=== PATIENT | female | born 1950 | race Caucasian/White ===

== ENCOUNTER 2018-10-27 06:55 | Day surgery (SDC) | payer MEDICARE, OTHER ==
[~2018-10-27] VITALS: Ht 157.5 cm; Wt 58.3 kg
[2018-10-27] MEDS ORDERED: LOSARTAN (07:45)
[2018-10-27] MEDS ORDERED: PLAVIX (07:45)
[2018-10-27] MEDS ORDERED: QVAR (07:45)
[2018-10-27] MEDS ORDERED: AMITRIPTYLINE (07:45)
[2018-10-27] MEDS ORDERED: NABUMETONE (07:45)
[2018-10-27] MEDS ORDERED: AMLODIPINE (07:45)
[2018-10-27] MEDS ORDERED: METOPROLOL (07:45)
[2018-10-27] MEDS ORDERED: OMEPRAZOLE (07:45)
[2018-10-27] MEDS ORDERED: ATORVASTATIN (07:45)
[2018-10-27] MEDS ORDERED: ADVAIR (07:45)
[2018-10-27 07:50] VITALS: Ht 157.5 cm; Wt 58.3 kg
[2018-10-27 07:58] VITALS: BP 121/69; PULSE 69; RESP 18
--- NOTE | 2018-10-27 07:59 | PREAC ---
Date/Time of Note Date/Time of Note DATE: 10/27/18 TIME: 07:57 Anesthesia Eval and Record Evaluation Time Pre-Procedure Interview DATE: 10/27/18 TIME: 07:57 Age 68 Sex female NPO: 8 hrs Preoperative diagnosis REFLUX, CHANGE IN BOWEL HABITS Planned procedure EGD, COLONOSCOPY WITH BIOPSIES Past Medical History Past Medical History: Includes Cardio: HTN, Dyslipidemia Pulm: Asthma Neuro: CVA GI: GERD Surgery & Anesthesia Issues No known issue Meds Anticoagulation: No Beta Domingo within 24 hr: Yes Reported Medications [Advair] No Conflict Check 10/27/18 [Qvar] No Conflict Check 10/27/18 [Nabumetone] No Conflict Check 10/27/18 [Amitriptyline] No Conflict Check 10/27/18 [Plavix] No Conflict Check 10/27/18 [Atorvastatin] No Conflict Check 10/27/18 [Metoprolol] No Conflict Check 10/27/18 [Amlodipine] No Conflict Check 10/27/18 [Losartan] No Conflict Check 10/27/18 [Omeprazole] No Conflict Check 10/27/18 Meds reviewed: Yes Allergies Coded Allergies: Codeine (Verified Allergy, 03/08/13) Allergies Reviewed: Yes Labs/Studies Labs Reviewed: Reviewed by anesthesiologist test: N/A Pre-procedure Exam Airway: Adequate mouth opening, Adequate thyromental dist Mallampati: Mallampati II Teeth: Normal Lung: Normal Heart: Normal ASA Physical Status ASA physical status: 2 Emergency: None Planned Anesthetic General/MAC: MAC Planned Pain Management Parenteral pain med Pre-operative Attestations Prior to commencing anesthesia and surgery, the patient was re-evaluated, there was verification of: *The patient's identity *The results of appropriate recent lab work and preoperative vital signs *The above evaluation not changing prior to induction *Anesthetic plan, risk benefits, alternative and complications discussed with patient/family; questions answered; patient/family understands, accepts and wishes to proceed. Hunter Arnold M.D. October 27, 2018 07:59
[2018-10-27] MEDS ORDERED: LIDOCAINE 100 MG SYRINGE ONE (08:42)
[2018-10-27] MEDS ORDERED: PROPOFOL 20 ML ONE (08:42)
[2018-10-27 09:46] VITALS: BP 129/69; RESP 20
--- NOTE | 2018-10-27 12:44 | PAC ---
Date/Time of Note Date/Time of Note DATE: 10/27/18 TIME: 12:44 Post-Anesthesia Notes Post-Anesthesia Note Last documented vital signs Vital Signs Date Temp Pulse Resp B/P (MAP) Pulse Ox O2 O2 Flow FiO2 Time Delivery Rate 10/27/18 20 129/69 97 Room Air 09:46 (89) 10/27/18 97.6 69 07:58 Activity: WNL Respiratory function: WNL Cardiovascular function: WNL Mental status: Baseline Pain reasonably controlled: Yes Hydration appropriate: Yes Nausea/Vomiting absent: Yes GEOVANNA MARTINEZ October 27, 2018 12:44
--- NOTE | 2018-10-28 06:56 | CONS ---
DATE OF ADMISSION: 10/27/2018 DATE OF CONSULTATION: PATIENT NAME: GRAY PARDO TYPE OF CONSULTATION: Preoperative gastroenterology. Dear Dr. Lizarraga: I thank you very much for this kind referral. HISTORY OF PRESENT ILLNESS: Ms. Gray Pardo is a 68-year-old female patient who has been refer red to me for further evaluation of chronic heartburn associated with chronic cough, not responding t o therapy with omeprazole. The patient denies any history of upper abdominal pain. No history of pe ptic ulcer disease. No history of gallstones or liver disease. The patient also complains of change in the bowel habit with alternating constipation and diarrhea. No rectal bleeding. No past history of colon neoplasm or inflammatory bowel disease. She is hypertensive. Not a diabetic. No heart di sease or lung problem. The patient has got chronic kidney disease. Has hyperlipidemia, history of a rthritis. Patient is status post a stroke and she is on Plavix. She is status post surgery for dive rticulitis with perforation. SOCIAL HISTORY: Nonsmoker. No alcohol abuse. FAMILY HISTORY: No family history of gastrointestinal tract neoplasm. ALLERGIES: No drug allergies. MEDICATIONS: 1. Omeprazole 40 mg p.o. b.i.d. 2. Losartan 100 mg p.o. daily. 3. Amlodipine 10 mg p.o. daily. 4. Metoprolol 50 mg p.o. b.i.d. 5. Atorvastatin 20 mg p.o. daily. 6. Plavix 75 mg p.o. daily. PHYSICAL EXAMINATION: VITAL SIGNS: She is 5 feet 2 inches tall and weighs 130 pounds. BMI 24, blood pressure 124/80. Nor mal heart sounds. LUNGS: Clear. ABDOMEN: Soft, no masses. Normal bowel sounds. NEUROLOGIC: Normal neurological exam. IMPRESSION: 1. Chronic heartburn and chronic cough, not responding to therapy with omeprazole 40 mg twice a day. The patient had abdominal CT scan and she was noted to have a large hiatal hernia. 2. Change in the bowel habit with alternating constipation and diarrhea. 3. Hypertension. 4. Hyperlipidemia. 5. Chronic kidney disease. 6. History of arthritis. 7. Status post surgery for diverticulitis with perforation. 8. History of stroke and the patient is on Plavix. PLAN: 1. Follow up with the primary MD for watching the BMI and further management of hypertension. 2. Endoscopy and colonoscopy for further evaluation. The procedures and possible complications are well explained to the patient. She understands and con sents to the procedures. I thank you once again. With warmest personal regards, Dictated By: STAR MORALES/MANOJ Conf#: [id number] DID#: [id number]
== END 2018-10-27 12:44 | disposition home or self-care (01) ==
LOC: GIL 06:55
PROVIDERS: ATTEND Internal Medicine Gastroenterology
DX: R19.4 Change in bowel habit (principal); K64.8 Other hemorrhoids; K57.30 Diverticulosis of large intestine without perforation or abscess without bleeding; K62.1 Rectal polyp; K44.9 Diaphragmatic hernia without obstruction or gangrene; K21.0 Gastro-esophageal reflux disease with esophagitis; J45.909 Unspecified asthma, uncomplicated; Z86.73 Personal history of transient ischemic attack (TIA), and cerebral infarction without residual deficits; Z79.02 Long term (current) use of antithrombotics/antiplatelets; I12.9 Hypertensive chronic kidney disease with stage 1 through stage 4 chronic kidney disease, or unspecified chronic kidney disease; N18.9 Chronic kidney disease, unspecified
CPT/HCPCS: 43239; 45380; 88305; 88312; J2001